=== PATIENT | male | born 1985 | race Caucasian/White ===

== ENCOUNTER 2018-10-11 16:25 | Emergency (ER) | payer OTHER ==
[2018-10-11] MEDS ORDERED: methylPREDNISolone Sodium Succinate 125 MG/2 ML SDV IM ONE (17:01)
--- NOTE | 2018-10-11 17:06 | EDM.PDOC ---
ED HPI GENERAL MEDICAL PROBLEM - General Chief Complaint: Respiratory Problem Stated Complaint: TROUBLE BREATHING Time Seen by Provider: 10/11/18 16:46 - History of Present Illness INITIAL COMMENTS - FREE TEXT/NARRATIVE: States he was fine this morning when he woke up- but then later morning, felt a "bite" to his right lower leg; lateral. Was red, itchy; then had a stabbing pain to he abdomen, left lower, made him sick and dry heave. Has welts to his axilla's, left worse than right. He also states he has a hard time breathing; His oxygen is normal, normal RR rate. denies any drug use and states he only has had a couple sips of a drink today; Onset: Today, Sudden Location: Reports: Chest, Abdomen, Lower Extremity, Right Quality: Reports: Ache Severity: Mild Improves with: Reports: None Worsens with: Reports: None Treatments [employer]: Reports: Other (see below) (Benadryl) Chest Pain Score (Numeric/FACES): 4 - Related Data Allergies Allergy/AdvReac Type Severity Reaction Status Date / Time No Known Allergies Allergy Verified 10/11/18 16:55 Home Meds: Home Meds diphenhydrAMINE [Benadryl] 50 mg PO Q6HR PRN 10/11/18 [History] Past Medical History - Past Health History Medical/Surgical History: Denies Medical/Surgical History ED ROS GENERAL - Review of Systems Review Of Systems: See Below Constitutional: Reports: Decreased Appetite HEENT: Reports: No Symptoms Respiratory: Reports: Shortness of Breath Cardiovascular: Reports: No Symptoms GI/Abdominal: Reports: Nausea : Reports: No Symptoms Musculoskeletal: Reports: No Symptoms Skin: Reports: Other (hive to axillas, left lower abdomen and right lateral LE) Neurological: Reports: No Symptoms Psychiatric: Reports: No Symptoms ED EXAM, GENERAL - Physical Exam Exam: See Below Exam Limited By: No Limitations General Appearance: Alert, WD/WN, No Apparent Distress Eye Exam: Bilateral Eye: EOMI, PERRL Nose: Normal Inspection Throat/Mouth: Normal Inspection, Normal Lips, Normal Teeth, Normal Gums, Normal Oropharynx, Normal Voice, No Airway Compromise Head: Atraumatic, Normocephalic Neck: Normal Inspection, Supple, Full Range of Motion Respiratory/Chest: No Respiratory Distress, Lungs Clear, Normal Breath Sounds, No Accessory Muscle Use, Chest Non-Tender Cardiovascular: Normal Peripheral Pulses, Regular Rate, Rhythm GI/Abdominal: Normal Bowel Sounds, Soft Back Exam: Normal Inspection, Full Range of Motion Extremities: Normal Inspection, Normal Range of Motion Neurological: Alert, Oriented, CN II-XII Intact Psychiatric: Normal Affect, Normal Mood Skin Exam: Warm, Dry, Other (red welts to the axilla, red area to the left lower abdomen, dime sizes and redness to his right LE, lateral area, warm to touch.) Course - Vital Signs Last Recorded V/S: Last Vital Signs Temp 98.6 F 10/11/18 17:47 Pulse 78 10/11/18 17:47 Resp 18 10/11/18 17:47 BP 121/68 10/11/18 17:47 Pulse Ox 96 10/11/18 17:47 - Orders/Labs/Meds Meds: Medications Discontinued Medications Generic Name Dose Route Start Last Admin Trade Name Freq PRN Reason Stop Dose Admin Methylprednisolone Sodium Succinate 125 mg 10/11/18 17:01 10/11/18 17:10 Solu-Medrol IM 10/11/18 17:02 125 mg ONETIME ONE Administration - Re-Assessments/Exams Free Text/Narrative Re-Assessment/Exam: 10/11/18 18:25 Got him up to walk; tolerated well; the welts are going away; he feels prepared for discharge. Departure - Departure Time of Disposition: 17:35 Disposition: Home, Self-Care 01 Condition: Good Clinical Impression: Allergic reaction - Discharge Information *PRESCRIPTION DRUG MONITORING PROGRAM REVIEWED*: Not Applicable *COPY OF PRESCRIPTION DRUG MONITORING REPORT IN PATIENT ANTHONY: Not Applicable Instructions: Anaphylactic Reaction, Adult, [id number] Referrals: PCP,None [Primary Care Provider] - Forms: ED Department Discharge Additional Instructions: Continue to push fluids Benadryl 25-50 mg every 6-8 hours for the next 24 hours This will likely make you sleepy The steroid injection we gave you will continue to work through the next 12 hours Return with worsening of symptoms Call with questions. - Problem List & Annotations (1) Allergic reaction SNOMED Code(s): 807064352 Code(s): T78.40XA - ALLERGY, UNSPECIFIED, INITIAL ENCOUNTER Status: Acute Priority: Low Qualifiers: Encounter type: initial encounter Qualified Code(s): T78.40XA - Allergy, unspecified, initial encounter - Problem List Review Problem List Initiated/Reviewed/Updated: Yes
== END 2018-10-11 18:02 | disposition home or self-care (01) ==
LOC: JP.ED 16:25
DX: L50.0 Allergic urticaria (principal)
CPT/HCPCS: 96372; 99284; J2930; 99283